=== PATIENT | female | born 1975 | race Caucasian/White ===

== ENCOUNTER 2021-05-10 08:52 | Inpatient (IN) ==
[2021-05-10 09:23] LABS: Bilirubin,Urine Negative (Negative); Blood,Urine Trace (Negative); Clarity,Urine Clear (Clear); Color,Urine Light-Yellow (Yellow); Glucose,Urine (UA) Normal (Normal); Ketones,Urine Negative (Negative); Leukocyte Esterase,Urine Negative (Negative); Nitrite,Urine Negative (Negative); PH,Urine 6.5 pH Units (5.0-8.0); Protein,Urine Negative (Neg-Trace); RBC,Urine 0-3 per hpf (0-3); Squamous Epithelial Cell,Urine Few per hpf (None-Few); Urobilinogen,Urine Normal (Normal); WBC,Urine 0-3 per hpf (0-3)
[2021-05-10 09:35] LABS: Amphetamine Screen,Urine Negative ng/mL (Cutoff=1000); Barbiturate Screen,Urine Negative ng/mL (Cutoff=200); Benzodiazepines Screen,Urine Negative ng/mL (Cutoff=200); Cannabinoid Screen,Urine Negative ng/mL (Cutoff = 50); Cocaine Screen,Urine Negative ng/mL (Cutoff= 300); Opiate Screen,Urine Negative ng/mL (Cutoff=300); Phencyclidine Screen,Urine Negative ng/mL (Cutoff=25)
[2021-05-10] MEDS ORDERED: *HR* LORazepam 1 MG TABLET PO ONE (09:45)
[2021-05-10 09:46] LABS: Eosinophils % 1.5 %; Hematocrit 42.9 % (35.3-44.9); Hemoglobin 14.7 g/dL (11.5-15.4); Immature Granulocytes % 0.3 % (0-4); Lymphocytes % 11.8 %; Mean Corpuscular HGB Conc 34.3 g/dL (31.6-35.5); Mean Corpuscular Hemoglobin 30.1 pg (28.0-33.3); Mean Corpuscular Volume 87.9 fL (83.0-100.0); Mean Platelet Volume 9.4 fL (9.4-12.4); Monocytes % 7.5 %; Platelet Count 287 K/mcL (140-400); Red Blood Count 4.88 M/mcL (3.82-4.97); Red Cell Distribution Width 13.3 % (11.5-14.5); Segmented Neutrophils % 78.3 %; White Blood Count 8.9 K/mcL (4.3-11.1)
[2021-05-10 09:47] LABS: Basophils # 0.1 K/mcL (0.0-0.2); Basophils % 0.6 %; Eosinophils # 0.1 K/mcL (0.0-0.6); Lymphocytes # 1.1 K/mcL (0.6-4.6); Monocytes # 0.7 K/mcL (0.0-1.3)
[2021-05-10 09:55] LABS: Acetaminophen < 10 mcg/mL (10-20); BUN/Creatinine Ratio 17 (6-26); Blood Urea Nitrogen 10 mg/dL (6-20); Calcium 9.2 mg/dL (8.6-10.3); Carbon Dioxide 22 mEq/L (23-29); Chloride 105 mEq/L (98-107); Chol/HDL Ratio 3.3 (0-4.9); Cholesterol 162 mg/dL (< 200); Ethanol < 10 mg/dL (Less than 10); Glucose 103 mg/dL (70-105); HDL Cholesterol 49 mg/dL (40-59); LDL Cholesterol,Calculated 85 mg/dL (< 100); Osmolality,Calculated 281 (280-300); Potassium 3.6 mEq/L (3.5-5.1); Salicylate < 2.5 mg/dL (15.0-30.0); Sodium 136 mEq/L (136-145); Triglycerides 138 mg/dL (< 150); eGFR For African Americans > 60 (> 60); eGFR For Non-African Americans > 60 (> 60)
[2021-05-10 10:41] LABS: Estimated Average Glucose 94 mg/dl; Hemoglobin A1C 4.9 %
[2021-05-10 13:42] LABS: Influenza A PCR Negative (Negative); Influenza B PCR Negative (Negative); Resp. Syncytial Virus PCR Negative (Negative); SARS-CoV-2 by PCR (In House) Negative (Negative)
[2021-05-10] MEDS ORDERED: *HR* LORazepam 1 MG TABLET PO PRN (15:45)
[2021-05-10] MEDS ORDERED: Acetaminophen 325 MG TABLET PO PRN (15:45)
[2021-05-10] MEDS ORDERED: Haloperidol Lactate 5 MG/ML VIAL IM PRN (15:45)
[2021-05-10] MEDS ORDERED: haloperidoL 5 MG TABLET PO PRN (15:45)
[2021-05-10] MEDS ORDERED: MOM Conc 10 ML UD.LIQ PO PRN (15:45)
[2021-05-10] MEDS ORDERED: *HR* LORazepam 2 MG/ML VIAL IM PRN (15:45)
[2021-05-10] MEDS ORDERED: Mag Hydrox/Al Hydrox/Simeth 30 ML UDC PO PRN (15:45)
[2021-05-10] MEDS: hydrOXYzine pamoate 25 MG CAPSULE PO PRN (18:53)
[2021-05-10] MEDS: traZODone 50 MG TABLET PO PRN (21:00)
[2021-05-11] MEDS: traZODone 50 MG TABLET PO PRN (00:31)
[2021-05-11] MEDS: cephALEXin 500 MG CAPSULE PO SCH ×2 (09:54→20:39)
[2021-05-11] MEDS: Venlafaxine XR (24 HR) 75 MG CAP.ER.24H PO SCH (11:28)
[2021-05-11] MEDS: hydrOXYzine pamoate 25 MG CAPSULE PO PRN (20:39)
[2021-05-11] MEDS ORDERED: Mirtazapine 15 MG TABLET PO SCH (21:00)
[2021-05-11] MEDS ORDERED: clonazePAM 1 MG TABLET PO ONE (22:54)
[2021-05-12] MEDS: cephALEXin 500 MG CAPSULE PO SCH ×2 (08:12→20:09)
[2021-05-12] MEDS: Venlafaxine XR (24 HR) 75 MG CAP.ER.24H PO SCH (08:12)
[2021-05-12] MEDS: clonazePAM 1 MG TABLET PO SCH (21:16)
[2021-05-13] MEDS: hydrOXYzine pamoate 25 MG CAPSULE PO PRN (01:41)
[2021-05-13] MEDS: Venlafaxine XR (24 HR) 75 MG CAP.ER.24H PO SCH (08:20)
[2021-05-13] MEDS: cephALEXin 500 MG CAPSULE PO SCH ×2 (08:20→17:01)
[2021-05-13] MEDS: Venlafaxine XR (24 HR) 37.5 MG CAP.ER.24H PO SCH (16:10)
[2021-05-13 20:09] VITALS: O2SAT 98
[2021-05-13] MEDS: clonazePAM 1 MG TABLET PO SCH (20:52)
[2021-05-14] MEDS: hydrOXYzine pamoate 25 MG CAPSULE PO PRN (01:14)
[2021-05-14 08:01] VITALS: BP 112/80; PULSE 92; TEMP 98.5
[2021-05-14] MEDS: cephALEXin 500 MG CAPSULE PO SCH (08:43)
[2021-05-14] MEDS: Venlafaxine XR (24 HR) 37.5 MG CAP.ER.24H PO SCH (08:50)
[2021-05-14] MEDS: Venlafaxine XR (24 HR) 75 MG CAP.ER.24H PO SCH (08:51)
== END 2021-05-14 11:10 | disposition home or self-care (01) | DRG 885 ==
LOC: EMEROOARM 08:52 → 1ANU 14:12
PROVIDERS: ADMIT Psychiatry & Neurology Psychiatry; ATTEND Psychiatry & Neurology Psychiatry